=== PATIENT | female | born 2000 | race American Indian/Alaskan Native ===

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

== ENCOUNTER 2021-05-08 01:43 | Emergency (ER) | payer SELFPAY ==
[2021-05-08 02:08] VITALS: BP 131/93
[2021-05-08] MEDS ORDERED: HYDROcodone/ACETAMINOPHEN 7.5-325MG TAB PO ONE ×2 (02:20→05:10)
[2021-05-08] MEDS ORDERED: IBUPROFEN 600 MG TAB PO ONE ×2 (02:20→05:10)
[2021-05-08] MEDS ORDERED: ONDANSETRON 4 MG ODT TAB PO ONE ×2 (02:20→05:10)
--- NOTE | 2021-05-08 04:03 | XRay Report ---
Right foot-3 views INDICATION: Right foot injury - pain. COMPARISON: None available. IMPRESSION: No acute osseous abnormality. Normal alignment. No significant DJD. Soft tissues are u nremarkable. Signer Name: Ruben Aguayo MD Signed: 05/08/2021 3:59 AM Workstation Name: [id number]
--- NOTE | 2021-05-08 04:38 | Emergency Department Report ---
ED Lower Extremity HPI - General Chief Complaint: Extremity Injury, Lower Stated Complaint: FOOT INJURY Source: patient Mode of arrival: Ambulatory Limitations: No Limitations - History of Present Illness Initial Comments: Patient is a 20-year-old -[place] female with past medical history of exercise-induced asthma and hyperlipidemia who presents to the ED with complaint of acute onset persistent severe right foot pain after she missed a step and twisted the right foot about 8 hours ago. Patient states that the pain has been persistent especially worse with any ambulation. Patient denies fall, traumatic injury, back pain, head or neck injuries, hip pain, nausea and vomiting, numbness and tingling or weakness of lower extremities bilaterally, change in vision, nausea and vomiting or loss of consciousness. MD Complaint: foot injury (Painful right foot after missing a step and twisting the right foot about 8 hours ago) -: Sudden, hour(s) (8) Injury: Foot: Right (right foot pain and swelling) Type of Injury: inversion Place: home Severity: severe Severity scale (0 -10): 8 Improves With: nothing Worsens With: weight bearing, movement, palpation Context: walking Associated Symptoms: snap/pop sensation, swelling, able to partially bear weight. denies: numbness, tingling, unable to bear weight, ambulatory - Related Data Previous Rx's Medication Instructions Recorded Last Taken Type Baclofen 20 mg PO Q12H PRN #20 tab 05/08/21 Unknown Rx Ibuprofen [Motrin] 800 mg PO Q8HR PRN #30 tablet 05/08/21 Unknown Rx Allergies Allergy/AdvReac Type Severity Reaction Status Date / Time No Known Allergies Allergy Unverified 10/12/16 12:17 ED Review of Systems ROS: Stated complaint: FOOT INJURY Other details as noted in HPI Constitutional: denies: chills, fever Eyes: denies: eye pain, eye discharge, vision change ENT: denies: ear pain, throat pain Respiratory: denies: cough, shortness of breath, wheezing Cardiovascular: denies: chest pain, palpitations Endocrine: no symptoms reported Gastrointestinal: denies: abdominal pain, nausea, diarrhea Genitourinary: denies: urgency, dysuria, discharge Musculoskeletal: arthralgia (Right foot pain). denies: back pain, joint swelling Skin: denies: rash, lesions Neurological: denies: headache, weakness, paresthesias Psychiatric: denies: anxiety, depression Hematological/Lymphatic: denies: easy bleeding, easy bruising ED Past Medical Hx - Past Medical History Hx Hypertension: Yes Additional medical history: high cholestrol. exercise induced asthma - Social History Smoking Status: Never Smoker Substance Use Type: None - Medications Home Medications: Home Medications Medication Instructions Recorded Confirmed Last Taken Type Baclofen 20 mg PO Q12H PRN #20 tab 05/08/21 Unknown Rx Ibuprofen [Motrin] 800 mg PO Q8HR PRN #30 tablet 05/08/21 Unknown Rx ED Physical Exam - General Limitations: No Limitations General appearance: alert, in no apparent distress - Head Head exam: Present: atraumatic, normocephalic, normal inspection - Eye Eye exam: Present: normal appearance, PERRL, EOMI Pupils: Present: normal accommodation - ENT ENT exam: Present: normal exam, normal orophraynx, mucous membranes moist, TM's normal bilaterally, normal external ear exam - Neck Neck exam: Present: normal inspection, full ROM. Absent: tenderness - Respiratory Respiratory exam: Present: normal lung sounds bilaterally. Absent: respiratory distress, wheezes, rales, stridor, chest wall tenderness, accessory muscle use, decreased breath sounds, prolonged expiratory - Cardiovascular Cardiovascular Exam: Present: regular rate, normal rhythm, normal heart sounds. Absent: systolic murmur, diastolic murmur, rubs, gallop - GI/Abdominal GI/Abdominal exam: Present: soft, normal bowel sounds. Absent: tenderness, guarding, rigid, hyperactive bowel sounds, hypoactive bowel sounds, mass - Extremities Exam Extremities exam: Present: normal inspection, full ROM, tenderness (Palpable right foot tenderness with mild swelling), normal capillary refill, joint sw elling (Mild swelling of the right foot). Absent: pedal edema, calf tenderness - Back Exam Back exam: Present: normal inspection, full ROM. Absent: tenderness, CVA tenderness (R), CVA tenderness (L), muscle spasm, paraspinal tenderness, vertebral tenderness - Neurological Exam Neurological exam: Present: alert, oriented X3, CN II-XII intact, normal gait, reflexes normal - Psychiatric Psychiatric exam: Present: normal affect, normal mood - Skin Skin exam: Present: warm, dry, intact, normal color. Absent: rash ED Course Vital Signs 05/08/21 02:03 Temperature 98.0 F Pulse Rate 82 Respiratory 18 Rate Blood Pressure 131/93 [Right] O2 Sat by Pulse 99 Oximetry ED Lower Extremity MDM - Radiology Data Radiology results: report reviewed, image reviewed [facility] [address] [place] [address] XRay Report Signed Patient: GIOVANI CROCKER MR#: [id number] : 2000 Acct:[id number] Age/Sex: 20 / F ADM Date: 05/08/21 Loc: ED Attending Dr: Ordering Physician: FABIENNE HECK Date of Service: 05/08/21 Procedure(s): XR foot 3+V RT Accession Number(s): [id number] cc: FABIENNE HECK Fluoro Time In Minutes: Right foot-3 views INDICATION: Right foot injury - pain. COMPARISON: None available. IMPRESSION: No acute osseous abnormality. Normal alignment. No significant DJD. Soft tissues are unremarkable. Signer Name: Ruben Aguayo MD Signed: 05/08/2021 3:59 AM Workstation Name: [id number] Transcribed By: MARCO Dictated By: Ruben Aguayo MD Electronically Authenticated By: Ruben Aguayo MD Signed Date/Time: 05/08/21358 DD/ 7 TD/TT: Print Cancel - Medical Decision Making This is a 20-year-old -[place] female with a past medical history of exercise-induced asthma and hyperlipidemia who presents to the ED with complaint of acute onset persistent severe right foot pain after she missed a step and twisted the right foot about 8 hours ago. Patient states that the pain has been persistent especially worse with any ambulation. In the ED, patient is alert and oriented x3 and is not in any distress. Patient was treated for pain in the ED. Right foot x-ray showed no acute fractures or subluxations. Patient's right foot was splinted with Brandon wrap and fitted postop shoe. Patient was ther eafter discharged home on pain medications and advised to follow-up with her primary care physician in 5 to 7 days for reevaluation or return to the ED immediately if symptoms get worse. - Differential Diagnosis Foot fracture; foot sprain; muscle strain; foot contusion Critical care attestation.: If time is entered above; I have spent that time in minutes in the direct care of this critically ill patient, excluding procedure time. ED Disposition Clinical Impression: Sprain of right foot Qualifiers: Encounter type: initial encounter Qualified Code(s): S93.601A - Unspecified sprain of right foot, initial encounter Muscle strain of right foot Qualifiers: Encounter type: initial encounter Qualified Code(s): S96.911A - Strain of unspecified muscle and tendon at ankle and foot level, right foot, initial encounter Disposition: HOME / SELF CARE / HOMELESS Is pt being admited?: No Does the pt Need Aspirin: No Condition: Stable Instructions: Muscle Strain, [id number], Foot Sprain Additional Instructions: The right foot x-ray showed no acute fractures or subluxations. Therefore your injuries are musculoskeletal due to muscle strain or foot sprain. Therefore take medications with food, drink plenty of fluids and follow-up with your primary care physician in 5 to 7 days for reevaluation. Return to the ED immediately if symptoms get worse. Prescriptions: Baclofen 20 mg PO Q12H PRN #20 tab PRN Reason: Muscle Spasm Ibuprofen [Motrin] 800 mg PO Q8HR PRN #30 tablet PRN Reason: Pain , Severe (7-10) Referrals: [facility] [Provider Group] - 7-10 days Forms: Work/School Release Form(ED) Time of Disposition: 04:40 Print Language: CZECH
== END 2021-05-08 05:06 | disposition home or self-care (01) ==
LOC: ED 01:43
DX: S93.601A Unspecified sprain of right foot, initial encounter (principal); S96.911A Strain of unspecified muscle and tendon at ankle and foot level, right foot, initial encounter; I10 Essential (primary) hypertension; X50.9XXA Other and unspecified overexertion or strenuous movements or postures, initial encounter; Y93.89 Activity, other specified; Y92.89 Other specified places as the place of occurrence of the external cause; Y99.8 Other external cause status
CPT/HCPCS: 99283; J3490; Q0162

== ENCOUNTER 2022-01-27 11:45 | Emergency (ER) | payer SELFPAY ==
[2022-01-27 12:03] VITALS: BP 140/118
--- NOTE | 2022-01-27 12:10 | Event Note ---
ED Screening Note Date of service: 01/27/22 Time: 12:08 ED Screening Note: This initial assessment/diagnostic orders/clinical plan/treatment(s) is/are subject to change based on patients health status, clinical progression and re- assessment by fellow clinical providers in the ED. Further treatment and workup at subsequent clinical providers discretion. Patient/guardian urged not to elope from the ED as their condition may be serious if not clinically assessed and managed. ST, nasal congestion subjective fever, myalgias for 2 days. Daughter with similar. Initial orders include: My Active Orders 01/27/22 12:04 Rapid FLU Stat Rapid Strep Stat
--- NOTE | 2022-01-27 14:32 | Emergency Department Report ---
ED General Adult HPI - General Chief complaint: Sore Throat Stated complaint: EAR ACHE/ SORE THROAT/ NECK STIFFNESS Time Seen by Provider: 01/27/22 13:49 Source: patient Mode of arrival: Ambulatory Limitations: No Limitations - History of Present Illness Initial comments: ST, nasal congestion subjective fever, myalgias for 2 days. Covid negative at home 2 days ago. Daughter with similar and negative for Covid 5 days ago.. Severity scale (0 -10): 5 - Related Data Previous Rx's Medication Instructions Recorded Last Taken Type Baclofen 20 mg PO Q12H PRN #20 tab 05/08/21 Unknown Rx Ibuprofen [Motrin] 800 mg PO Q8HR PRN #30 tablet 05/08/21 Unknown Rx Allergies Allergy/AdvReac Type Severity Reaction Status Date / Time No Known Allergies Allergy Verified 01/27/22 12:03 ED Review of Systems ROS: Stated complaint: EAR ACHE/ SORE THROAT/ NECK STIFFNESS Other details as noted in HPI Constitutional: denies: chills, fever Eyes: denies: eye pain, eye discharge, vision change ENT: denies: ear pain, throat pain Respiratory: denies: cough, shortness of breath, wheezing Cardiovascular: denies: chest pain, palpitations Endocrine: no symptoms reported Gastrointestinal: denies: abdominal pain, nausea, diarrhea Genitourinary: denies: urgency, dysuria, discharge Musculoskeletal: denies: back pain, joint swelling, arthralgia Skin: denies: rash, lesions Neurological: denies: headache, weakness, paresthesias Psychiatric: denies: anxiety, depression Hematological/Lymphatic: denies: easy bleeding, easy bruising ED Past Medical Hx - Past Medical History Hx Hypertension: Yes Additional medical history: high cholestrol. exercise induced asthma - Social History Smoking Status: Never Smoker Substance Use Type: None - Medications Home Medications: Home Medications Medication Instructions Recorded Confirmed Last Taken Type Baclofen 20 mg PO Q12H PRN #20 tab 05/08/21 Unknown Rx Ibuprofen [Motrin] 800 mg PO Q8HR PRN #30 tablet 05/08/21 Unknown Rx ED Physical Exam - General Limitations: No Limitations General appearance: alert, in no apparent distress - Head Head exam: Present: atraumatic, normocephalic - Eye Eye exam: Present: normal appearance - ENT ENT exam: Present: mucous membranes moist - Neck Neck exam: Present: normal inspection - Respiratory Respiratory exam: Present: normal lung sounds bilaterally. Absent: respiratory distress - Cardiovascular Cardiovascular Exam: Present: regular rate, normal rhythm. Absent: systolic murmur, diastolic murmur, rubs, gallop - GI/Abdominal GI/Abdominal exam: Present: soft, normal bowel sounds - Extremities Exam Extremities exam: Present: normal inspection - Back Exam Back exam: Present: normal inspection - Neurological Exam Neurological exam: Present: alert, oriented X3 - Psychiatric Psychiatric exam: Present: normal affect, normal mood - Skin Skin exam: Present: warm, dry, intact, normal color. Absent: rash ED Course Vital Signs 01/27/22 11:49 Temperature 98.4 F Pulse Rate 120 H Respiratory 18 Rate Blood Pressure 140/118 [Right] O2 Sat by Pulse 99 Oximetry ED Medical Decision Making - Medical Decision Making ST, nasal congestion subjective fever, myalgias for 2 days. Covid negative at home 2 days ago. Daughter with similar and negative for Covid 5 days ago. Flu and Strep negative. REcommend repeat Covid at home today as we do not have rapid covid test here. Critical care attestation.: If time is entered above; I have spent that time in minutes in the direct care of this critically ill patient, excluding procedure time. ED Disposition Clinical Impression: URI, acute Disposition: 01 HOME / SELF CARE / HOMELESS Is pt being admited?: No Condition: Stable Instructions: Viral Respiratory Infection, [id number] Additional Instructions: Guaifenesin, Tylenol or Motrin as needed for fever or pain. Warm compresses sinues, nasal saline, warm salt water gargles. Follow up your doctor this week. . Referrals: MIN ALVAREZ MD [Staff Physician] - 3-5 Days Forms: Work/School Release Form(ED) Time of Disposition: 14:33
== END 2022-01-27 14:40 | disposition home or self-care (01) ==
LOC: ED 11:45
DX: J06.9 Acute upper respiratory infection, unspecified (principal); Z79.899 Other long term (current) drug therapy
CPT/HCPCS: 87116; 87430; 99283; 87502